=== PATIENT | male | born 1940 | race Caucasian/White ===

== ENCOUNTER 2021-01-22 11:06 | Emergency (ER) | payer MEDICARE, OTHER ==
[2021-01-22 11:27] VITALS: BP 122/71; PULSE 64
--- NOTE | 2021-01-22 12:11 | EDM.PDOC ---
ED HPI GENERAL MEDICAL PROBLEM - General Chief Complaint: Back Pain or Injury Stated Complaint: low back pain Time Seen by Provider: 01/22/21 11:55 Source of Information: Reports: Patient, Old Records, RN History Limitations: Reports: No Limitations - History of Present Illness INITIAL COMMENTS - FREE TEXT/NARRATIVE: 80 yo male here with low back pain on the right. Pain is worse with movement. Does not recall any recent heavy lifting or injury. Has not been to the clinic for this. No self tx today. Onset yesterday. 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 (see below) (none today, Aleve yesterday) Right Middle Back Pain Score (Numeric/FACES): 6 - Related Data Allergies Allergy/AdvReac Type Severity Reaction Status Date / Time No Known Allergies Allergy Verified 01/22/21 11:25 Home Meds: Home Meds Cyanocobalamin (Vitamin B-12) [Vitamin B-12] 1,000 mcg SL DAILY 10/06/14 [History] Lisinopril 40 mg PO DAILY 10/06/14 [History] Omeprazole 20 mg PO DAILY 10/06/14 [History] Simvastatin [Zocor] 40 mg PO BEDTIME 10/06/14 [History] hydroCHLOROthiazide [Hydrochlorothiazide] 12.5 mg PO DAILY 10/06/14 [History] Past Medical History HEENT History: Reports: Cataract Cardiovascular History: Reports: High Cholesterol Respiratory History: Reports: None Gastrointestinal History: Reports: GERD Musculoskeletal History: Reports: Other (See Below) Other Musculoskeletal History: right knee pain Neurological History: Reports: None Psychiatric History: Reports: None Endocrine/Metabolic History: Reports: None Hematologic History: Reports: None Immunologic History: Reports: None Oncologic (Cancer) History: Reports: None Dermatologic History: Reports: None - Past Surgical History Head Surgeries/Procedures: Reports: None HEENT Surgical History: Reports: Cataract Surgery GI Surgical History: Reports: Appendectomy, Hernia Repair/Other Musculoskeletal Surgical History: Reports: Hip Replacement, Knee Replacement Other Musculoskeletal Surgeries/Procedures:: left hip. bilateral knee Social & Family History - Tobacco Use Tobacco Use Status *Q: Never Tobacco User - Caffeine Use Caffeine Use: Reports: Coffee - Alcohol Use Days Per Week of Alcohol Use: 4 Number of Drinks Per Day: 1 Total Drinks Per Week: 4 - Recreational Drug Use Recreational Drug Use: No ED ROS GENERAL - Review of Systems Review Of Systems: See Below Constitutional: Reports: No Symptoms HEENT: Reports: No Symptoms Respiratory: Reports: No Symptoms Cardiovascular: Reports: No Symptoms GI/Abdominal: Reports: Constipation, Distension (mild). Denies: Diarrhea Musculoskeletal: Reports: Back Pain (R low) Skin: Reports: No Symptoms Neurological: Reports: No Symptoms ED EXAM,LOWER BACK PAIN/INJURY - Physical Exam Exam: See Below Exam Limited By: No Limitations General Appearance: Alert, WD/WN, No Apparent Distress Back Exam: Normal Inspection, Paraspinal Tenderness (R lumbar). No: CVA Tenderness (R), CVA Tenderness (L), Vertebral Tenderness Extremities: Normal Inspection, Normal Range of Motion, Non-Tender, No Pedal Edema Neurological: Alert, Normal Mood/Affect, CN II-XII Intact, No Motor/Sensory Deficits, Oriented x 3 Psychiatric: Normal Affect, Normal Mood Skin Exam: Warm, Dry, Intact, Normal Color, No Rash Course - Vital Signs Last Recorded V/S: Last Vital Signs Temp 36.6 C 01/22/21 11:31 Pulse 64 01/22/21 11:31 Resp 16 01/22/21 11:31 BP 122/71 01/22/21 11:31 Pulse Ox 97 01/22/21 11:31 Departure - Departure Time of Disposition: 12:10 Disposition: Home, Self-Care 01 Condition: Good Clinical Impression: Paraspinal muscle spasm - Discharge Information *PRESCRIPTION DRUG MONITORING PROGRAM REVIEWED*: No *COPY OF PRESCRIPTION DRUG MONITORING REPORT IN PATIENT FAY: No Instructions: Muscle Strain, [id number] Referrals: PCP,None [Primary Care Provider] - Additional Instructions: Take Flexeril 5 mg every 8 hrs as needed. Acetaminophen up to 1000 mg every 6 hrs for added pain. Try Julio Bui with vigorous massage to relax those muscles. For your bowels try Metamucil once or twice daily with a large amount of water. Simethicone may relief some of your gassiness. Avoid lifting, bending or twisting until your back pain subsides. Recheck with your doctor if not improving. Sepsis Event Note (ED) - Evaluation Sepsis Screening Result: No Definite Risk - Focused Exam Vital Signs: Vital Signs Temp Pulse Resp BP Pulse Ox 01/22/21 11:31 36.6 C 64 16 122/71 97 01/22/21 11:26 36.6 C 64 16 122/71 97
== END 2021-01-22 12:18 | disposition home or self-care (01) ==
LOC: JP.ED 11:06
DX: M62.830 Muscle spasm of back (principal); E78.00 Pure hypercholesterolemia, unspecified; K21.9 Gastro-esophageal reflux disease without esophagitis; Z79.899 Other long term (current) drug therapy
CPT/HCPCS: 99283

== ENCOUNTER → 2021-05-06 | Day surgery (SDC) | payer MEDICARE ==
[~2021-05-06] MED LIST: Midazolam 1 MG/ML 2 ML SDV ONE; Propofol 200 MG/20 ML SDV ONE; Sodium Chloride 0.9% 1,000 ML IV SCH; fentaNYL 100 MCG/2 ML SDV ONE
[2021-05-06 12:46] VITALS: BP 140/77; PULSE 64
--- NOTE | 2021-05-07 10:19 | OR ---
DATE OF PROCEDURE: 05/06/2021 SURGEON: Subhash Walker MD PROCEDURES: 1. Esophagogastroduodenoscopy. 2. Colonoscopy. FINDINGS: 1. Inflammation at GE junction concerning for reflux disease (biopsied multiple times using cold biopsy forceps). 2. Hiatal hernia approximately 6 cm in size. 3. Diverticulosis, moderate, mostly limited to sigmoid colon in a classic pattern. 4. Tortuous sigmoid colon. 5. Marginal colon prep. COMPLICATIONS: None. OUTSIDE MAINTENANCE WORKER: None. ANESTHETIC: MAC. RISKS: Risks, benefits, alternatives, and limitations including but not limited to infection, bleeding, perforation, false positives and false negatives were explained to the patient who wished to proceed. PREOPERATIVE DIAGNOSIS: Iron deficiency anemia. POSTOPERATIVE DIAGNOSIS: Iron deficiency anemia. PROCEDURE IN DETAIL: The patient was placed in left lateral decubitus position. The EGD scope was introduced and advanced atraumatically to the second part of the duodenum. No evidence of duodenitis or ulceration. Within the stomach itself, there was no gastritis or ulceration. The patient was noted to have approximately 6 cm hiatal hernia. Mild inflammation at GE junction is concerning for reflux disease. This was biopsied using cold biopsy forceps. This was biopsied in all 4 quadrants. The air was removed. The remainder of esophagus was inspected without abnormality. Digital rectal exam was performed next. Scope was introduced and advanced atraumatically to the ileocecal valve. A photo was taken of the appendiceal orifice. Scope was brought back to the ascending, transverse, descending colon, and retroflexed. The patient had diverticulosis, described as mild, without evidence of bleeding or infection. No abnormalities on retroflexion. The prep was marginal with moderate amount of solid stool remaining. Suction irrigation techniques were used to facilitate maximum visualization. Greater than 8 minutes was spent removing the scope. Subhash Walker MD /[id number]
== END ==
LOC: JP.SDS 09:49
PROVIDERS: ATTEND Surgery
DX: D12.5 Benign neoplasm of sigmoid colon (principal); K21.00 Gastro-esophageal reflux disease with esophagitis, without bleeding; K63.89 Other specified diseases of intestine; K44.9 Diaphragmatic hernia without obstruction or gangrene; K57.30 Diverticulosis of large intestine without perforation or abscess without bleeding; D50.9 Iron deficiency anemia, unspecified
CPT/HCPCS: J2250; J2704; J3010; J7030

== ENCOUNTER 2024-11-06 11:54 | Inpatient (IN) | payer MEDICARE ==
[2024-11-06 12:51] LABS: EOSINOPHILS ABSOLUTE AUTO 0.08 K/uL (0.00-0.40); EOSINOPHILS PERCENT AUTO 0.8 % (0.0-5.4); HEMOGLOBIN 14.6 g/dL (12.9-16.9); IMMATURE GRAN ABSOLUTE AUTO 0.04 K/uL (0.00-0.23); IMMATURE GRAN PERCENT AUTO 0.4 % (0.0-0.7); LYMPHOCYTES ABSOLUTE AUTO 0.55 K/uL (0.8-3.3); LYMPHOCYTES PERCENT AUTO 5.8 % (11.4-47.7); MEAN CORPUSCULAR HEMOGLOBIN 35.3 pg (31.6-35.5); MEAN CORPUSCULAR VOLUME 103.9 fL (81.4-99.0); MONOCYTES ABSOLUTE AUTO 0.98 K/uL (0.20-0.90); MONOCYTES PERCENT AUTO 10.3 % (3.3-12.6); NEUTROPHILS ABSOLUTE AUTO 7.91 K/uL (1.0-7.6); NEUTROPHILS PERCENT AUTO 82.7 % (40.0-78.1); PLATELET COUNT,PLT 233 K/uL (130-375); RED BLOOD CELL COUNT 4.14 M/uL (4.14-5.76); WHITE BLOOD CELL COUNT,WBC 9.6 K/uL (3.2-11.0)
[2024-11-06 13:11] LABS: A/G RATIO 0.8 (1.2-2.2); ALANINE AMINOTRANSFERASE,ALT 18 U/L (12-78); ALBUMIN 3.3 g/dL (3.4-5.0); ALKALINE PHOSPHATASE 79 U/L (46-116); ASPARTATE AMNIOTRANSFERASE,AST 22 U/L (15-37); BILIRUBIN TOTAL 0.9 mg/dL (0.2-1.0); BLOOD UREA NITROGEN,BUN 19 mg/dL (7-18); CALCIUM 9.3 mg/dL (8.5-10.1); CARBON DIOXIDE,CO2 31 mmol/L (21-32); CHLORIDE,CL 102 mmol/L (100-108); CREATINE KINASE,CK 45 U/L (39-308); CREATININE 1.1 mg/dL (0.8-1.3); ESTIMATED GFR 66 mL/min (>60); GLUCOSE RANDOM 120 mg/dL (74-106); POTASSIUM,K 5.2 mmol/L (3.6-5.2); PROTEIN TOTAL,TP 7.5 g/dL (6.4-8.2); SODIUM,NA 138 mmol/L (140-148)
[2024-11-06 13:15] LABS: ANION GAP 10.2 mmol/L (5.0-14.0)
[2024-11-06] MEDS: Ketorolac 30 MG/ML SDV IM ONE (13:58)
[2024-11-06 14:13] LABS: APPEARANCE,URINE CLEAR (CLEAR); BILIRUBIN,URINE NEGATIVE (NEGATIVE); COLOR,URINE YELLOW (YELLOW); GLUCOSE,URINE NEGATIVE (NEGATIVE); KETONES,URINE NEGATIVE (NEGATIVE); LEUKOCYTE ESTERASE,URINE NEGATIVE (NEGATIVE); NITRITE,URINE NEGATIVE (NEGATIVE); OCCULT BLOOD,URINE NEGATIVE (NEGATIVE); PH,URINE 5.5 (5.0-8.0); PROTEIN,URINE 30 mg/dL (NEGATIVE); UROBILINOGEN,URINE 0.2 EU/dL (0.2-1.0)
[2024-11-06] MEDS: Acetaminophen 325 MG Tab PO ONE (14:15)
[2024-11-06] MEDS: Ketorolac 15 MG/ML SDV IVPUSH ONE (14:16)
[2024-11-06 14:31] LABS: AMORPHOUS SEDIMENT,URINE NOT SEEN; BACTERIA,URINE FEW; EPITHELIAL CELLS,URINE RARE; MUCUS,URINE FEW; RBC,URINE 0-5 (0-5)
[2024-11-06] MEDS ORDERED: Ondansetron 4 MG/2 ML SDV IV PRN (15:19)
[2024-11-06] MEDS ORDERED: Enoxaparin 40 MG/0.4 ML Syringe SUBCUT SCH (15:19)
[2024-11-06] MEDS ORDERED: Polyethylene Glycol 3350 Powder 17 GM Packet PO PRN (15:19)
[2024-11-06] MEDS ORDERED: Sodium Chloride 0.9% 10 ML Syringe FLUSH PRN (15:19)
[2024-11-06] MEDS ORDERED: Ferrous Sulfate 325 MG Tab PO SCH (15:19)
[2024-11-06] MEDS: Sodium Chloride 0.9% 1,000 ML IV SCH (16:16)
[2024-11-06] MEDS: Enoxaparin 40 MG/0.4 ML Syringe SUBCUT SCH (16:17)
[2024-11-06] MEDS: Famotidine 20 MG Tab PO SCH (21:05)
[2024-11-06] MEDS: atorvaSTATin 20 MG Tab PO SCH (21:06)
[2024-11-07] MEDS: Acetaminophen 325 MG Tab PO PRN (05:07)
[2024-11-07 05:23] LABS: HEMATOCRIT 39.9 % (38.4-49.7); HEMOGLOBIN 13.3 g/dL (12.9-16.9); MEAN CORPUSCULAR HEMOGLOBIN 35.2 pg (31.6-35.5); MEAN CORPUSCULAR HGB CONC 33.3 g/dL (31.6-35.5); MEAN CORPUSCULAR VOLUME 105.6 fL (81.4-99.0); RED BLOOD CELL COUNT 3.78 M/uL (4.14-5.76); WHITE BLOOD CELL COUNT,WBC 10.3 K/uL (3.2-11.0)
[2024-11-07 05:43] LABS: CALCIUM 8.5 mg/dL (8.5-10.1); CREATININE 1.1 mg/dL (0.8-1.3); EST CRCL DRUG DOSING (CG) 45.9 mL/min; MAGNESIUM 1.5 mg/dL (1.8-2.4)
[2024-11-07] MEDS: Cyclobenzaprine 10 MG Tab PO SCH (08:34)
[2024-11-07] MEDS: Pantoprazole 40 MG Tab.CR PO SCH (08:35)
[2024-11-07] MEDS: Ferrous Sulfate 325 MG Tab PO SCH (08:35)
[2024-11-07] MEDS: Lisinopril 20 MG Tab PO SCH (08:35)
[2024-11-07] MEDS: Magnesium Oxide 400 MG Tab PO SCH (08:36)
[2024-11-07] MEDS: Magnesium Sulfate/Water Premix 2 GM in Premix Bag 1 BAG IV SCH (08:38)
[2024-11-07] MEDS: Ibuprofen 400 MG Tab PO ONE (20:32)
[2024-11-08 10:57] LABS: HEMATOCRIT 38.1 % (38.4-49.7); MEAN CORPUSCULAR HEMOGLOBIN 35.8 pg (31.6-35.5); MEAN CORPUSCULAR HGB CONC 34.1 g/dL (31.6-35.5); RED BLOOD CELL COUNT 3.63 M/uL (4.14-5.76); WHITE BLOOD CELL COUNT,WBC 12.3 K/uL (3.2-11.0)
[2024-11-08 11:06] LABS: CALCIUM 8.7 mg/dL (8.5-10.1); CREATININE 1.1 mg/dL (0.8-1.3); EST CRCL DRUG DOSING (CG) 45.9 mL/min; POTASSIUM,K 4.3 mmol/L (3.6-5.2)
[2024-11-08 11:08] LABS: ANION GAP 13.3 mmol/L (5.0-14.0)
[2024-11-08] MEDS: cefTRIAXone 1 GM in Sodium Chloride 0.9% 50 ML IV SCH (12:27)
[2024-11-08] MEDS: Doxycycline 100 MG in Sodium Chloride 0.9% 100 ML IV SCH (13:41)
[2024-11-08 15:59] LABS: APPEARANCE,URINE SLIGHTLY CLOUDY (CLEAR); BILIRUBIN,URINE SMALL (NEGATIVE); COLOR,URINE YELLOW (YELLOW); GLUCOSE,URINE NEGATIVE (NEGATIVE); KETONES,URINE NEGATIVE (NEGATIVE); LEUKOCYTE ESTERASE,URINE NEGATIVE (NEGATIVE); NITRITE,URINE NEGATIVE (NEGATIVE); OCCULT BLOOD,URINE NEGATIVE (NEGATIVE); PH,URINE 5.5 (5.0-8.0); PROTEIN,URINE 100 mg/dL (NEGATIVE); UROBILINOGEN,URINE 0.2 EU/dL (0.2-1.0)
[2024-11-08 16:07] LABS: AMORPHOUS SEDIMENT,URINE MODERATE; BACTERIA,URINE MODERATE; EPITHELIAL CELLS,URINE RARE; MUCUS,URINE MODERATE; RBC,URINE 0-5 (0-5)
[2024-11-08] MEDS: oxyCODONE 5 MG Tab PO PRN (17:06)
[2024-11-09] MEDS: oxyCODONE 5 MG Tab PO PRN (10:08)
[2024-11-10 06:10] LABS: HEMATOCRIT 37.6 % (38.4-49.7); HEMOGLOBIN 12.7 g/dL (12.9-16.9); MEAN CORPUSCULAR HEMOGLOBIN 35.2 pg (31.6-35.5); MEAN CORPUSCULAR HGB CONC 33.8 g/dL (31.6-35.5); MEAN CORPUSCULAR VOLUME 104.2 fL (81.4-99.0); RED BLOOD CELL COUNT 3.61 M/uL (4.14-5.76); WHITE BLOOD CELL COUNT,WBC 12.5 K/uL (3.2-11.0)
[2024-11-10 06:29] LABS: ANION GAP 6.1 mmol/L (5.0-14.0); CALCIUM 9.4 mg/dL (8.5-10.1); CREATININE 1.2 mg/dL (0.8-1.3); EST CRCL DRUG DOSING (CG) 42.08 mL/min; MAGNESIUM 1.9 mg/dL (1.8-2.4); POTASSIUM,K 4.6 mmol/L (3.6-5.2)
[2024-11-11 06:09] LABS: HEMOGLOBIN 12.2 g/dL (12.9-16.9); MEAN CORPUSCULAR HEMOGLOBIN 35.3 pg (31.6-35.5); MEAN CORPUSCULAR HGB CONC 33.9 g/dL (31.6-35.5); RED BLOOD CELL COUNT 3.46 M/uL (4.14-5.76); WHITE BLOOD CELL COUNT,WBC 13.1 K/uL (3.2-11.0)
[2024-11-11 06:32] LABS: A/G RATIO 0.5 (1.2-2.2); ALANINE AMINOTRANSFERASE,ALT 86 U/L (12-78); ALBUMIN 2.2 g/dL (3.4-5.0); ALKALINE PHOSPHATASE 180 U/L (46-116); ASPARTATE AMNIOTRANSFERASE,AST 143 U/L (15-37); BILIRUBIN DIRECT 0.31 mg/dL (0.0-0.2); BILIRUBIN INDIRECT 0.49; BILIRUBIN TOTAL 0.8 mg/dL (0.2-1.0); BLOOD UREA NITROGEN,BUN 26 mg/dL (7-18); C-REACTIVE PROTEIN 16.03 mg/dL (<0.50); CALCIUM 9.4 mg/dL (8.5-10.1); CARBON DIOXIDE,CO2 27 mmol/L (21-32); CHLORIDE,CL 103 mmol/L (100-108); CREATININE 1.1 mg/dL (0.8-1.3); ESTIMATED GFR 66 mL/min (>60); GLUCOSE RANDOM 119 mg/dL (74-106); MAGNESIUM 1.8 mg/dL (1.8-2.4); PHOSPHORUS 2.5 mg/dL (2.5-4.9); POTASSIUM,K 4.3 mmol/L (3.6-5.2); PROTEIN TOTAL,TP 6.8 g/dL (6.4-8.2); SODIUM,NA 139 mmol/L (140-148)
[2024-11-11 06:33] LABS: ANION GAP 13.3 mmol/L (5.0-14.0)
[2024-11-11] MEDS: Furosemide 20 MG Tab PO SCH (11:55)
[2024-11-12 05:21] LABS: HEMATOCRIT 35.8 % (38.4-49.7); HEMOGLOBIN 12.1 g/dL (12.9-16.9); MEAN CORPUSCULAR HEMOGLOBIN 34.6 pg (31.6-35.5); MEAN CORPUSCULAR HGB CONC 33.8 g/dL (31.6-35.5); MEAN CORPUSCULAR VOLUME 102.3 fL (81.4-99.0); RED BLOOD CELL COUNT 3.5 M/uL (4.14-5.76); WHITE BLOOD CELL COUNT,WBC 11.3 K/uL (3.2-11.0)
[2024-11-12 05:54] LABS: ALBUMIN 2.1 g/dL (3.4-5.0); ANION GAP 9.2 mmol/L (5.0-14.0); BLOOD UREA NITROGEN,BUN 28 mg/dL (7-18); CALCIUM 9.4 mg/dL (8.5-10.1); CARBON DIOXIDE,CO2 28 mmol/L (21-32); CHLORIDE,CL 104 mmol/L (100-108); CREATININE 1.2 mg/dL (0.8-1.3); EST CRCL DRUG DOSING (CG) 42.08 mL/min; ESTIMATED GFR 59 mL/min (>60); GLUCOSE RANDOM 112 mg/dL (74-106); PHOSPHORUS 2.9 mg/dL (2.5-4.9); POTASSIUM,K 4.2 mmol/L (3.6-5.2); SODIUM,NA 141 mmol/L (140-148)
[2024-11-12] MEDS: Acetaminophen/oxyCODONE 325-5 MG Tab PO PRN (09:37)
[2024-11-13 05:29] VITALS: BP 132/78; PULSE 95
[2024-11-13 05:54] LABS: HEMATOCRIT 37.8 % (38.4-49.7); HEMOGLOBIN 12.9 g/dL (12.9-16.9); MEAN CORPUSCULAR HEMOGLOBIN 35.1 pg (31.6-35.5); MEAN CORPUSCULAR HGB CONC 34.1 g/dL (31.6-35.5); MEAN CORPUSCULAR VOLUME 102.7 fL (81.4-99.0); RED BLOOD CELL COUNT 3.68 M/uL (4.14-5.76); WHITE BLOOD CELL COUNT,WBC 11.4 K/uL (3.2-11.0)
[2024-11-13 06:24] LABS: ANION GAP 7.7 mmol/L (5.0-14.0); BLOOD UREA NITROGEN,BUN 35 mg/dL (7-18); CALCIUM 9.6 mg/dL (8.5-10.1); CARBON DIOXIDE,CO2 28 mmol/L (21-32); CHLORIDE,CL 104 mmol/L (100-108); CREATININE 1.2 mg/dL (0.8-1.3); EST CRCL DRUG DOSING (CG) 42.08 mL/min; ESTIMATED GFR 59 mL/min (>60); GLUCOSE RANDOM 104 mg/dL (74-106); PHOSPHORUS 2.9 mg/dL (2.5-4.9); POTASSIUM,K 4.4 mmol/L (3.6-5.2); SODIUM,NA 140 mmol/L (140-148)
[2024-11-13] MEDS: Cefdinir 300 MG Cap PO ONE (10:27)
[2024-11-13] MEDS: predniSONE 20 MG Tab PO ONE (10:30)
== END 2024-11-13 11:00 | DRG 177 ==
LOC: JP.ED 11:54 → JP.MS 15:13
PROVIDERS: ADMIT Hospitalist; ATTEND Internal Medicine
DX: U07.1 COVID-19 (principal); J12.82 Pneumonia due to coronavirus disease 2019; J15.9 Unspecified bacterial pneumonia; M02.39 Reiter's disease, multiple sites; E78.00 Pure hypercholesterolemia, unspecified; I10 Essential (primary) hypertension; K21.9 Gastro-esophageal reflux disease without esophagitis; Z96.649 Presence of unspecified artificial hip joint; Z96.659 Presence of unspecified artificial knee joint; F15.90 Other stimulant use, unspecified, uncomplicated; Z66 Do not resuscitate; D72.829 Elevated white blood cell count, unspecified; E86.0 Dehydration; M13.88 Other specified arthritis, other site; Z79.02 Long term (current) use of antithrombotics/antiplatelets; Z79.899 Other long term (current) drug therapy; Z90.49 Acquired absence of other specified parts of digestive tract; Z98.890 Other specified postprocedural states; Z98.49 Cataract extraction status, unspecified eye; Z87.891 Personal history of nicotine dependence
CPT/HCPCS: 36415; 71045 ×2; 80053; 81001; 82550; 84145; 85025; 85730; 96374; 99285 ×2; A9270; J1885; 80048; 80069; 80076; 83735; 85027; 86140; 87040; 97110-GP; 97161-GP; 97165-GO; 97530-GP; 99222; 99231; 99232; 99239; J0696; J1650; J3475; J3490; J7030; J7512

== ENCOUNTER 2024-11-23 13:25 | Emergency (ER) | payer MEDICARE ==
[2024-11-23] MEDS: Sodium Chloride 0.9% 1,000 ML IV ONE (13:57)
[2024-11-23 13:59] LABS: BASOPHILS ABSOLUTE AUTO 0.03 K/uL (0.00-0.10); BASOPHILS PERCENT AUTO 0.1 % (0.1-1.3); EOSINOPHILS ABSOLUTE AUTO 0.06 K/uL (0.00-0.40); EOSINOPHILS PERCENT AUTO 0.3 % (0.0-5.4); HEMATOCRIT 38.1 % (38.4-49.7); HEMOGLOBIN 13.1 g/dL (12.9-16.9); IMMATURE GRAN ABSOLUTE AUTO 0.18 K/uL (0.00-0.23); IMMATURE GRAN PERCENT AUTO 0.8 % (0.0-0.7); LYMPHOCYTES PERCENT AUTO 6.3 % (11.4-47.7); MEAN CORPUSCULAR HEMOGLOBIN 35.1 pg (31.6-35.5); MEAN CORPUSCULAR HGB CONC 34.4 g/dL (31.6-35.5); MEAN CORPUSCULAR VOLUME 102.1 fL (81.4-99.0); MONOCYTES ABSOLUTE AUTO 1.74 K/uL (0.20-0.90); MONOCYTES PERCENT AUTO 7.8 % (3.3-12.6); NEUTROPHILS ABSOLUTE AUTO 18.89 K/uL (1.0-7.6); NEUTROPHILS PERCENT AUTO 84.7 % (40.0-78.1); PLATELET COUNT,PLT 325 K/uL (130-375); RED BLOOD CELL COUNT 3.73 M/uL (4.14-5.76); WHITE BLOOD CELL COUNT,WBC 22.3 K/uL (3.2-11.0)
[2024-11-23 14:20] LABS: ALBUMIN 2.1 g/dL (3.4-5.0); ALKALINE PHOSPHATASE 165 U/L (46-116); BILIRUBIN TOTAL 0.7 mg/dL (0.2-1.0); BLOOD UREA NITROGEN,BUN 47 mg/dL (7-18); CARBON DIOXIDE,CO2 30 mmol/L (21-32); CHLORIDE,CL 99 mmol/L (100-108); CREATININE 2.5 mg/dL (0.8-1.3); ESTIMATED GFR 25 mL/min (>60); GLUCOSE RANDOM 130 mg/dL (74-106); PROTEIN TOTAL,TP 6.8 g/dL (6.4-8.2); SODIUM,NA 137 mmol/L (140-148)
[2024-11-23 14:21] LABS: A/G RATIO 0.5 (1.2-2.2); ALANINE AMINOTRANSFERASE,ALT 75 U/L (12-78); ASPARTATE AMNIOTRANSFERASE,AST 115 U/L (15-37)
[2024-11-23 14:50] LABS: INFLUENZA A NAA NEGATIVE (NEGATIVE); INFLUENZA B NAA NEGATIVE (NEGATIVE); RESPIRATORY SYNCYTIAL VIR NAA NEGATIVE (NEGATIVE)
[2024-11-23] MEDS: Sodium Chloride 0.9% 500 ML IV ONE (14:54)
[2024-11-23 15:00] LABS: CORONAVIRUS COVID-19 NAA POSITIVE (NEGATIVE)
[2024-11-23 15:43] VITALS: BP 109/64; PULSE 90
== END 2024-11-23 16:21 | disposition home or self-care (01) ==
LOC: JP.ED 13:25
DX: U07.1 COVID-19 (principal); J12.82 Pneumonia due to coronavirus disease 2019; N17.9 Acute kidney failure, unspecified; I10 Essential (primary) hypertension; E78.00 Pure hypercholesterolemia, unspecified; K21.9 Gastro-esophageal reflux disease without esophagitis; Z90.49 Acquired absence of other specified parts of digestive tract; Z96.649 Presence of unspecified artificial hip joint; Z96.659 Presence of unspecified artificial knee joint; Z86.16 Personal history of COVID-19; Z79.899 Other long term (current) drug therapy
CPT/HCPCS: 0241U; 36415; 71045; 80053; 85025; 96360; 96361; 99285; J7030; J7040

== ENCOUNTER 2025-08-29 06:25 | Emergency (ER) | payer MEDICARE ==
[2025-08-29 06:53] LABS: BASOPHILS ABSOLUTE AUTO 0.04 K/uL (0.00-0.10); BASOPHILS PERCENT AUTO 0.5 % (0.1-1.3); EOSINOPHILS ABSOLUTE AUTO 0.10 K/uL (0.00-0.40); EOSINOPHILS PERCENT AUTO 1.3 % (0.0-5.4); IMMATURE GRAN PERCENT AUTO 0.1 % (0.0-0.7); LYMPHOCYTES ABSOLUTE AUTO 1.13 K/uL (0.8-3.3); LYMPHOCYTES PERCENT AUTO 14.2 % (11.4-47.7); MONOCYTES ABSOLUTE AUTO 0.72 K/uL (0.20-0.90); MONOCYTES PERCENT AUTO 9.0 % (3.3-12.6); NEUTROPHILS ABSOLUTE AUTO 5.98 K/uL (1.0-7.6); NEUTROPHILS PERCENT AUTO 74.9 % (40.0-78.1); PLATELET COUNT,PLT 334 K/uL (130-375); RED BLOOD CELL COUNT 3.88 M/uL (4.14-5.76); WHITE BLOOD CELL COUNT,WBC 8.0 K/uL (3.2-11.0)
[2025-08-29 06:57] LABS: IMMATURE GRAN ABSOLUTE AUTO 0.01 K/uL (0.00-0.23)
[2025-08-29 07:16] LABS: A/G RATIO 0.9 (1.2-2.2); ALANINE AMINOTRANSFERASE,ALT 22 U/L (12-78); ASPARTATE AMNIOTRANSFERASE,AST 29 U/L (15-37); BILIRUBIN TOTAL 0.7 mg/dL (0.2-1.0); BLOOD UREA NITROGEN,BUN 26 mg/dL (7-18); CARBON DIOXIDE,CO2 29 mmol/L (21-32); CHLORIDE,CL 104 mmol/L (100-108); CREATININE 1.1 mg/dL (0.8-1.3); EST CRCL DRUG DOSING (CG) 45.07 mL/min; ESTIMATED GFR 65 mL/min (>60); GLUCOSE RANDOM 115 mg/dL (74-106); POTASSIUM,K 4.6 mmol/L (3.6-5.2); PROTEIN TOTAL,TP 6.7 g/dL (6.4-8.2); SODIUM,NA 140 mmol/L (140-148); TROPONIN I HIGH SENSITIVITY 32.7 pg/mL (<=60.3)
[2025-08-29] MEDS: fentaNYL 100 MCG/2 ML SDV IVPUSH ONE ×3 (08:14→13:47)
[2025-08-29 11:18] LABS: APPEARANCE,URINE CLEAR (CLEAR); GLUCOSE,URINE NEGATIVE (NEGATIVE); OCCULT BLOOD,URINE NEGATIVE (NEGATIVE)
[2025-08-29 13:51] VITALS: BP 126/80; PULSE 86
== END 2025-08-29 13:55 ==
LOC: JP.ED 06:25
DX: M97.02XA Periprosthetic fracture around internal prosthetic left hip joint, initial encounter (principal); I10 Essential (primary) hypertension; E78.00 Pure hypercholesterolemia, unspecified; Z86.16 Personal history of COVID-19; Z90.49 Acquired absence of other specified parts of digestive tract
CPT/HCPCS: 36415; 70450; 72125; 73080; 73502; 76377; 80053; 81003; 84484; 85025; 93005; 96374; 96376; 99285; J3010